=== PATIENT | male | born 1945 | race Caucasian/White ===

== ENCOUNTER 2023-04-25 06:24 | Day surgery (SDC) | payer OTHER ==
[~2023-04-25] VITALS: Ht 170.2 cm; Wt 83.5 kg
[2023-04-25] MEDS ORDERED: MIDAZOLAM HCL 5 MG/5 ML VIAL ONE (08:25)
[2023-04-25] MEDS ORDERED: fentaNYL CITRATE/PF 100 MCG/2 ML AMP ONE (08:25)
[2023-04-25 10:24] VITALS: BP_SYST 144; PULSE 98; RESP 20; TEMP 98.4; O2SAT 99
== END 2023-04-25 09:46 | disposition home or self-care (01) ==
LOC: SDS 06:24 → SMU 06:25 → SDS 09:46
PROVIDERS: ATTEND Internal Medicine Gastroenterology
DX: K70.31 Alcoholic cirrhosis of liver with ascites (principal); I85.10 Secondary esophageal varices without bleeding; K31.89 Other diseases of stomach and duodenum; E11.9 Type 2 diabetes mellitus without complications; Z79.899 Other long term (current) drug therapy
CPT/HCPCS: 43244; 99152; 87081; 36415; 43239; 82948; G0378; J2250; J3010